=== PATIENT | female | born 1975 | race African-American/Black ===

== ENCOUNTER 2017-08-04 09:15 | Emergency (ER) | payer OTHER ==
[~2017-08-04] VITALS: Ht 165.1 cm; Wt 108.9 kg
[2017-08-04 09:21] VITALS: BP 131/69
== END 2017-08-04 09:53 | disposition home or self-care (01) ==
LOC: ER 09:17
DX: H10.13 Acute atopic conjunctivitis, bilateral (principal)
CPT/HCPCS: A4606; Z7610